=== PATIENT | male | born 1990 | race Hispanic/Latino ===

== ENCOUNTER 2017-06-23 16:41 | Emergency (ER) | payer SELFPAY ==
[2017-06-23 17:17] LABS: Bilirubin Negative (Negative); Blood, Urine Large (Negative); Clarity CLEAR (Clear); Glucose, Urine (Dipstick) Negative (Negative); Leukocyte Negative (Negative); Nitrite Negative (Negative); Protein, Urine (Dipstick) Negative (Neg-Trace); Specific Gravity, Urine 1.021 (1.002-1.036)
[2017-06-23 17:20] LABS: Bacteria/HPF None Seen HPF (None Seen); Hyaline Casts/LPF 0-3 HYALINE CAST LPF (0-3 Hyaline); Pathc Cast-AUWi Flag 0.13 (0-2.49); RBC/HPF GREATER THAN 50-TNTC HPF (0-3); Squamous Epithelial None Seen HPF (0-3); WBC/HPF 0-3 HPF (0-3)
[2017-06-23 17:45] LABS: #Eosinphils 0.1 thou/uL (0.0-0.7); #Lymphocytes 1.9 thou/uL (1.20-3.40); #Monocytes 0.5 thou/uL (0.11-0.59); #Neutrophils 11.5 thou/uL (1.40-6.50); %Basophils 0.3 % (0.0-1.0); %Eosinophils 0.6 % (0.0-10.0); %Lymphocytes 13.3 % (21.0-51.0); %Monocytes 3.8 % (0.0-10.0); Hemoglobin 16.6 g/dL (14.0-18.0); Mean Corpuscular HGB CONC 35.2 g/dL (32.0-36.0); Mean Corpuscular Hemoglobin 31.7 pg (27.0-31.0); Mean Platelet Volume 8.7 fL (7.4-10.4); Platelet Count 234 thou/uL (130-400); RBC Distribution Width 10.9 % (11.5-14.5); Red Blood Cell (RBC) Count 5.24 mill/uL (4.70-6.10)
[2017-06-23 18:16] LABS: ALT (SGPT) 21 U/L (8-55); AST (SGOT) 14 U/L (5-34); Albumin 4.6 g/dL (3.5-5.0); Alkaline Phosphatase 65 U/L (40-150); Anion Gap 12 mmol/L (10-20); BUN (Urea Nitrogen) 9 mg/dL (8.9-20.6); Bilirubin, Total 0.4 mg/dL (0.2-1.2); Calc. Creatinine Clearance 0 mL/min (70-130); Calcium 9.9 mg/dL (7.8-10.44); Carbon Dioxide 27 mmol/L (22-29); Chloride 105 mmol/L (98-107); Estimated GFR-MDRD Greater than 90; Globulin 2.7 g/dL (2.4-3.5); Glucose 135 mg/dL (70-105); Lipase 5 U/L (8-78); Protein, Total 7.3 g/dL (6.0-8.3); Sodium 140 mmol/L (136-145)
[2017-06-23] MEDS ORDERED: Ketorolac Tromethamine 30 MG/ML VIAL ONE (20:19)
--- NOTE | 2017-06-23 21:28 | CT ---
CT OF THE ABDOMEN AND PELVIS WITHOUT CONTRAST 06/23/17 COMPARISON: None. HISTORY: Abdominal pain since this morning that is worsening and is associated with vomiting. Multiple contiguous axial images were obtained in a CT of the abdomen and pelvis without contrast. Co janette reformats were performed. FINDINGS: There are two calcifications in the proximal aspect of the right ureter. These each measure approxima tely 6 mm in size. There was moderate right sided hydronephrosis. There are punctate nonobstructing l eft renal calcifications without significant left sided hydronephrosis. The liver, gallbladder, adrenal glands, spleen and pancreas are unremarkable. No free air, free or st randing changes seen in the abdomen. The large and small bowel are unremarkable. The appendix is normal. No abdominal or pelvic lymphadeno jimenez are seen. The osseous structures, visualized inferior thorax and abdominal wall soft tissues are unremarkable. IMPRESSION: 1. Right proximal ureteral calcification with moderate right hydronephrosis. 2. Nonobstructing left renal calcifications. POS: [id number]
== END 2017-06-23 20:51 | disposition home or self-care (01) ==
LOC: ERS 16:41
DX: N13.2 Hydronephrosis with renal and ureteral calculous obstruction (principal)
CPT/HCPCS: 36415; 74176; 80053; 81003; 81015; 83690; 85025; 96372; J1885